=== PATIENT | female | born 1990 | race Two or more races ===

== ENCOUNTER 2025-02-09 00:26 | Inpatient (IN) | payer OTHER ==
[~2025-02-09] VITALS: Ht 157.5 cm; Wt 2.3 kg
[~2025-02-09 00:26] MED LIST: AMPICILLIN SODIUM 1,000 MG VIAL ONE; AMPICILLIN SODIUM 2,000 MG VIAL ONE
[2025-02-09] MEDS ORDERED: RINGERS SOLUTION,LACTATED 1,000 ML IV SCH (00:45)
[2025-02-09] MEDS ORDERED: AMPICILLIN SODIUM 1,000 MG VIAL IV SCH ×2 (00:45→04:00)
[2025-02-09 04:15] VITALS: BP 100/62
[2025-02-09] MEDS ORDERED: AMPICILLIN SODIUM 1,000 MG VIAL ONE ×4 (04:26→20:42)
[2025-02-09 07:09] VITALS: BP 128/79
[2025-02-09] MEDS ORDERED: OXYTOCIN 20 UNITS/500ML RL PIGGYBAG IV ONE (07:26)
[2025-02-09] MEDS ORDERED: OXYTOCIN 500 ML IV ONE (07:45)
[2025-02-09] MEDS ORDERED: PRENATAL + DHA1 EAC1 PO (09:58)
[2025-02-09 11:19] VITALS: BP 129/78
[2025-02-09] MEDS ORDERED: MORPHINE SULFATE 4 MG/ML VIAL IV ONE (14:00)
[2025-02-09 15:23] VITALS: BP 124/70
[2025-02-09] MEDS ORDERED: OXYTOCIN 10 UNITS/ML VIAL ONE (16:15)
[2025-02-09] MEDS ORDERED: ERYTHROMYCIN BASE OPHT 1GM EACH TUBE OP ONE (16:15)
[2025-02-09] MEDS ORDERED: OXYTOCIN 1,000 ML IV SCH (17:45)
[2025-02-09] MEDS ORDERED: MORPHINE SULFATE 4 MG/ML CARTRIDGE IV PRN (17:45)
[2025-02-09 21:42] VITALS: BP 122/77
[2025-02-10] VITALS: BP 113/73
[2025-02-10] MEDS ORDERED: OxyCODONE HCL 5 MG TABLET (ROXICODONE) PO PRN (08:30)
[2025-02-10] MEDS ORDERED: IBUprofen 400 MG TABLET PO SCH ×2 (09:00→17:00)
[2025-02-10 09:15] VITALS: BP 122/78
[2025-02-10 09:23] LABS: HEMATOCRIT 35.3 % (36.0-45.00); HEMOGLOBIN 11.9 g/dL (12.0-15.00); MEAN CELL VOLUME 90.4 fL (80.00-100.00); MEAN CORPUSCULAR HEMOGLOBIN 30.4 pg (27.00-32.0); MEAN CORPUSCULAR HGB CONC 33.7 g/dl (32.0-36.0); PLATELET COUNT 209 K/uL (150-450); RED BLOOD COUNT 3.91 M/uL (4.00-6.00); RED CELL DISTRIBUTION WIDTH 14.1 % (11.5-14.5)
[2025-02-10 16:06] VITALS: BP 120/73
[2025-02-11 00:41] VITALS: BP 110/73
[2025-02-11 04:45] VITALS: BP 116/77
[2025-02-11] MEDS ORDERED: FF) RHO(D) IMMUNE GLOBULIN (POM) IM SCH (08:00)
[2025-02-11] MEDS ORDERED: IBUprofen 400 MG TABLET PO SCH (09:00)
[2025-02-11 09:11] VITALS: BP 123/85
[2025-02-11 15:41] VITALS: BP 120/86
[2025-02-12] VITALS: BP 137/80
[2025-02-12 07:48] VITALS: BP 117/83
[2025-02-12] MEDS ORDERED: KETO10TA2 PO (10:11)
[2025-02-12] MEDS ORDERED: OXYCODONE HCL5 MG PO (10:11)
== END 2025-02-12 13:56 | disposition home or self-care (01) | DRG 788 ==
LOC: LDR 00:26 → OB/GYN 00:26 → O/R 16:41 → OB/GYN 18:59
PROVIDERS: Obstetrics & Gynecology; ADMIT Obstetrics & Gynecology; ATTEND Obstetrics & Gynecology
PROC: 4A1HXCZ Monitoring of Products of Conception, Cardiac Rate, External Approach (ICD-10-PCS; 2025-02-09)
PROC: 10D00Z1 Extraction of Products of Conception, Low, Open Approach (ICD-10-PCS; principal; 2025-02-09 18:00)
DX: O99.824 Streptococcus B carrier state complicating childbirth (principal); O36.5930 Maternal care for other known or suspected poor fetal growth, third trimester, not applicable or unspecified; Z3A.37 37 weeks gestation of pregnancy; Z37.0 Single live birth